=== PATIENT | female | born 1965 | race Caucasian/White ===

== ENCOUNTER 2016-12-20 06:42 | Day surgery (SDC) | payer MEDICAID ==
[2016-12-20] MEDS ORDERED: LR 1,000 ML IV ONE (07:22)
[2016-12-20] MEDS ORDERED: LIDOCAINE 1% 2 ML INJ ID PRN (07:22)
--- NOTE | 2016-12-20 07:26 | PDANEPAE ---
ANE History of Present Illness Patient presents for colonoscopy ANE Past Medical History - Cardiovascular History Hx Hypertension: No Hx Arrhythmias: No Hx Chest Pain: No Hx Coronary Artery / Peripheral Vascular Disease: No Hx CHF / Valvular Disease: No - Pulmonary History Hx COPD: No Hx Asthma/Reactive Airway Disease: No Hx Recent Upper Respiratory Infection: No Hx Oxygen in Use at Home: No Hx Sleep Apnea: Yes Sleep Apnea Screening Result - Last Documented: Positive Pulmonary History Comment: KEVIN uses CPAP. - Neurologic History Hx Cerebrovascular Accident: No Hx Seizures: No Hx Dementia: No - Endocrine History Hx Diabetes: Yes Endocrine History Comment: PARATHYROID ISSUES - Renal History Hx Renal Disorders: Yes Renal History Comment: UA FREQUENCY - Liver History Hx Hepatic Disorders: No - Neurological & Psychiatric Hx Hx Neurological and Psychiatric Disorders: No - Cancer History Hx Cancer: No - Congenital Disorder History Hx Congenital Disorders: No - GI History Hx Gastrointestinal Disorders: No - Other Health History Other Health History: screening colonoscopy - Chronic Pain History Chronic Pain: No - Surgical History Prior Surgeries: HYSTERECTOMY. HYSTEROSCOPY ANE Review of Systems - Exercise capacity METS (RN): 4 METS ANE Patient History - Allergies Allergies/Adverse Reactions: morphine Allergy (Verified 12/13/16 16:01) penicillin V potassium [From Pen-Vee K] Allergy (Verified 12/13/16 16:01) - Home Medications Home Medications: NK [No Known Home Meds] 12/13/16 [Last Taken Unknown] - Smoking Hx Smoking Status: Never smoked ANE Labs/Vital Signs - Vital Signs Height: 166.37 cm Weight: 77.111 kg ANE Physical Exam - Airway Neck exam: FROM Mallampati Score: Class 1 Mouth exam: normal dental/mouth exam - Pulmonary Pulmonary: no respiratory distress - Cardiovascular Cardiovascular: regular rate and rhythym - ASA Status ASA Status: II ANE Anesthesia Plan Anesthesia Plan: MAC (RBA discussed)
[2016-12-20] MEDS ORDERED: PROPOFOL/EMULSION 500 MG/50 ML BOTTLE IV ONE (07:45)
--- NOTE | 2016-12-20 08:05 | PDGENHP ---
History & Physical Chief Complaint: Screening colonoscopy History of Present Illness: Needs screening colonoscopy Relevant Physical Exam: GEN: NAD. Cardiac: RRR. Lungs: CTA B. Abd: Soft, nt, nd
[2016-12-20] MEDS ORDERED: LIDOCAINE 2% 5 ML SDV ONE (08:10)
[2016-12-20] MEDS ORDERED: NALOXONE HCL 0.4 MG/ML INJ IVP PRN (08:14)
[2016-12-20] MEDS ORDERED: ONDANSETRON 4 MG/2 ML VIAL IVP PRN (08:14)
[2016-12-20] MEDS ORDERED: fentaNYL 100 MCG/2 ML INJ IVP PRN (08:14)
--- NOTE | 2016-12-20 08:33 | POSTOPPROG ---
Post Op Note Date of Operation: 12/20/16 Surgeon: Henry Hickey Pre-op Diagnosis: Screening colonoscopy Post-op Diagnosis: Same Indication: Screening colonoscopy Procedure: Colonoscopy Inf/Abcess present in the surg proc area at time of surgery?: No
--- NOTE | 2016-12-20 08:37 | POSTANESTH ---
Post Anesthetic Evaluation Cardiovascular Status: Normal, Stable Respiratory Status: Normal, Stable Level of Consciousness/Mental Status: Can Participate in Eval Pain Control: Adequate, Prn Tx Ordered Nausea/Vomiting Control: Adequate, Prn Tx Ordered Complications Possibly Related to Anesthesia: None Noted
[2016-12-20 09:17] VITALS: O2SAT 95
[2016-12-20 09:50] VITALS: BP 100/79; PULSE 66; RESP 14; TEMP 97.9
--- NOTE | 2016-12-20 10:07 | GCON ---
[f rep st] CONSULTATION DATE OF CONSULTATION: 12/20/2016 PREPROCEDURE DIAGNOSIS: Screening colonoscopy. POSTPROCEDURE DIAGNOSIS: Normal screening colonoscopy. MEDICATIONS: Monitored anesthesia care. PROCEDURE: Colonoscopy. INDICATIONS: The patient 51-year-old female here for screening colonoscopy. The risks and benefits of the procedure discussed with the patient and consent obtained. The risks include, but not limited to, bleeding, perforation, risks related to sedation. The patient is ASA Class 1. DESCRIPTION OF PROCEDURE: The adult colonoscope was advanced into the terminal ileum, which appeared normal. The ileocecal valve, appendiceal orifice, cecum ascending colon, hepatic flexure, transverse colon, splenic flexure, descending colon, sigmoid colon, and rectum appeared normal. Retroflexed views in the rectum were normal. IMPRESSION: Normal screening colonoscopy. RECOMMENDATIONS: 1. Advance diet as tolerated. 2. Discharge to home with escort. 3. Repeat screening colonoscopy in 10 years. 4. Continue current medications. Thank you for allowing me to participate in the care of your patient. Please do not hesitate to call with questions. /[id number]/MODL MTDD
== END 2016-12-20 10:07 | disposition home or self-care (01) ==
LOC: FSGY 06:42
PROVIDERS: ATTEND Internal Medicine Gastroenterology
PROC: 0DJD8ZZ Inspection of Lower Intestinal Tract, Via Natural or Artificial Opening Endoscopic (ICD-10-PCS; principal; 2016-12-20 08:00)
DX: Z12.11 Encounter for screening for malignant neoplasm of colon (principal); G47.33 Obstructive sleep apnea (adult) (pediatric); Z88.0 Allergy status to penicillin
CPT/HCPCS: J2704